=== PATIENT | female | born 1995 | race Caucasian/White ===

== ENCOUNTER 2024-10-20 07:06 | Outpatient (OUT) | payer BC, SELFPAY ==
--- OUTSIDE RECORDS SUMMARY | 2024-10-10 05:00 | XMS_ITS ---
Author Organization [facility] in [place] Address [address] [place] [address] Care Team Providers Care Mason Liner Name Role Phone Fransisco Pandey Primary Care Provider Allergies Allergen (clinical drug ingredient) Drug/Non Drug Allergy documented on EMR Reaction Allergy Type Onset Date Status Penicillin hives Drug Allergy Active REASON FOR VISIT Presents to office alone for yearly wellness exam, itchy read rash between breast x2 weeks. Has been using otc creams and is making it worse Medications Medication SIG (Take, Route, Fr equency, Duration) Notes Start Date End Date Status Ketoconazole 2 % 1 application Day Porter ally bid for 14 days 10/10/2024 Active Social History Tobacco Use: Social History Observation Description Date Details (start date - stop date) Never Smoker NA - NA Tobacco Control (Standard) Question Answer Notes Tobacco use: Nonsmoker AUDIT-C (Standard) Question Answer Notes Did you have a drink containing alcohol in the p ast year? No Points 0 Interpretation Negative Problems Problem Type SNOMED Code ICD Code Onset Dates Problem Status W/U Status Risk Notes Problem Well adult (192335289) Well adult (Z00.00) Active confirmed Vital Signs Weight 244.2 lbs 10/10/2024 Height 63 in 10/10/2024 Blood pressure systolic 134 mm Hg 10/11/19 25 Blood pressure diastolic 70 mm Hg 025 BMI 43.25 kg/m2 10/10/2024 Encounters Encounter Location Date Provider Diagnosis [facility] [address] [place] [address] 10/10/2024 Fransisco Pandey Well adult Z00.0 0 Assessments Encounter Date Diagnosis (ICD Code) Assessment Notes Treatment Notes Treatment Clinical Notes Section Notes 10/10/2024 Well adult (ICD-10 - Z00.00) Plan Of Treatment Medication Medication Name Sig Start Date Stop Date Notes Ketoconazole 2 % 1 application Externally bid for 14 days 10/10/2024 Pending Test Test Name Order Date HEMOGLOBIN A1C (GLYCO) 10/10/2024 IRON, TOTAL 10/10/2024 LIPID PANEL (CHOL/TRIG/HDL/LDL) 10/11/19 25 Insulin Level 10/10/2024 THYROID PANEL (T4/TSH/FREE T3) 5 CMP (COMP MET SULLIVAN) w/eGFR CKD-EPI 2024 CBC WITH DIFF 10/10/2024 Progress Notes * Wale GOMEZ LDOB: [birth year] (29 yo F)Acc No.[id number]:10/10/2024 Progress Note Patient: Wale BUSBY Provider: Crystal Pandey ([facility])MD :1995 A ge:29 Y S ex:Female Date:10/10/2024 Address:[address] [place] [address], [place] z[place] [id number] Check In:08:50 AM ESTCheck O ut:09:43 AM EST Subjective: * Chief Complaints: * P resents to office alone for yearly wellness examitchy read rash between breast x2 weeks. Has been using otc creams and is making it worse * HPI: D epression Screening: PHQ-2 (2015 Edition) L ittle interest or pleasure in doing things??Not at all F eeling down, depressed, or hopeless? N ot at all T otal Score 0 * ROS: E ENT: hearing changes d enies. v isual changes d enies.?non-healing mouth sores d enies. s wollen glands or neck lumps d enies. h oarseness d enies. s ore throat d enies. d ifficulty swallowing d enies. n ose bleeds d enies. n margaret congestion d enies. e ar ache d enies. e ar discharge?denies. r inging in ears d enies. l ight sensitivity d enies. e ye pain d enies. b lurring d enies. e ye irritation d enies. d ouble vision d enies.?vision loss d enies. G eneral/Constitutional: Sweats: D enies. F atigue d enies. S leep problems d enies. A norexia d enies. M alaise d enies. W eight loss d enies.?Fatigue or Weakness d enies. F ever or Chills d enies. C ardiovascular: Shortness of Breath w/lying flat d enies. L ightheadedness/dizziness d enies. C hest tightness/ heavy pressure d enies. S welling of legs, ankles, or feet d enies. W aking up with shortness of breath d enies. C hest pain denies. P alpitations d enies. W eight gain d enies. R espiratory: Chronic or frequent cough d enies. C oughing up blood?denies. D ifficulty breathing d enies. P roductive cough d enies. S noring?denies. S hortness of breath that awakens from sleep (PND) d enies. C hest pain d enies. S putum production d enies. W heezing d enies. M usculoskeletal: Joint pain d enies. J oint Fluid d enies. B ack pain d enies. K nee pain d enies. N hamilton pain d enies. J oint Stiffness d enies. M uscle cramps d enies. W eakness of muscles d enies. A rthritis d enies. M uscle aches d enies. P ain in shoulder(s) d enies. S wollen joints d enies. * Active Problem List N93.8 DUB (dysfunctional u terine bleeding) Modified On:11/29/2022U Status:confirmed E28.2 Polycystic ovary syn drome Modified On:11/29/2022U Status:confirmed Z00.00 Well adult Modified On:06/13/2025W/U Status:confirmed * Medical History: * Surgical History: S urgery left earlobe [place] Teeth * Hospitalization/Major Diagno stic Procedure: * Family History: F ather: alive. M other: alive. B rother(s): alive. S ister(s): alive. 3 brother(s) , 1 sister(s) . . unsure of any health issues in the family. * Social History: T obacco Use: T obacco Control (Standard) T obacco use: N onsmoker D rug/Alcohol: A ZULEYKA-C (Standard) D id you have a drink containing alcohol in the past year? N o P oints 0 I nterpretation N egative * Medications: D iscontinuedmetFORMIN HCl ER 500 MG Tablet Extended Release 24 Hour 1 tablet with evening meal Oral Once a day PARoxetine HCl 20 MG Tablet 1 tablet in the morning Orally Once a day Medication List reviewed and reconciled with the patientDiscontinued metFORMIN HCl ER 500 MG Tablet Extended Release 24 Hour 1 tablet with evening meal Oral Once a day Discontinued PARoxetine HCl 20 MG Tablet 1 tablet in the morning Orally Once a day Medication List reviewed and reconciled with the patient * Allergies: P enicillin: hivesno[Allergies Verified] Objective: * Vitals: W t:244.2lbs, Ht: 63 in, BP:134/70mm Hg, BMI:43.25Index, Ht-cm: 160.02 cm, Wt-k.77 kg. * Examination: P hysical Exam: GENERAL: w ell developed, well nourished, in no acute distress. HEAD: n ormocephalic/atraumatic. EYES: p upils equal, round and reactive to light, conjunctivae and sclerae normal. EARS: n o deformity or lesion of external ear, canals and TM appear normal bilaterally, TM's intact, not inflamed with normal light reflex, hearing grossly normal to conversational speech. NOSE: n o deformity, discharge, inflammation, or lesions.? MOUTH: m ucous membranes moist, normal oropharynx and posterior pharynx without lesions or exudates, tongue normal, dentition normal. NECK: n hamilton supple, no masses or palpable cervical nodes, trachea midline, thyroid without nodules, masses, tenderness, or enlargement. CHEST: n o chest wall deformity, no chest wall tenderness.? LUNGS: n ormal respiratory effort and clear to auscultation, no wheezes, rales, or rhonchi, good air exchange. CARDIO: r egular rate and rhythm, normal S1 and S2, nor murmur, rub, or gallop. PULSES: n ormal capillary refill. ABDOMEN: s oft, non-distended, non-tender, no masses. MUSCULOSKELETAL: n o deformity or scoliosis noted, normal range of motion, joints normal, no erythema, edema, effusion, or ecchymosis. EXTREMITY: n o clubbing, cyanosis, edema, or deformity with normal ROM in both upper and lower bilateral extremities. NEUROLOGIC: g rossly normal. SKIN: r cass in ant chest - . LYMPH NODES: n o cervical adenopathy, nodes normal. MENTAL STATUS: a lert and oriented x3, normal mood and affect. Assessment: * Assessment: 1. W ell adult - Z00.00 (Primary) Plan: * Treatment: * Procedure Codes: * Preventive Medicine: Screenings/Counseling: B SC ACTION PLAN Above Normal BMI Follow-up D ietary management education, guidance, and counseling See treatment section of progress note for complete details of management plan. * * Sign off status: Completed Visit Status: C HK (Check Out) true * Provider: Crystal Pandey ([facility])MD Date: 0 10/10/2024 Generated for Printi ng/Faxing/eTransmitting on: 0 10/20/2024 07:08 AM EDT History and Physical Notes * HPI (History of Present Illness) Category Sub-Category Detail Notes Category Not es Depression Screening PHQ-2 (2015 Edition) Little interest or pleasure in doing things?: Not at all Feeling down, depressed, or hopeless?: N ot at all Total Score: 0 Examination Category Sub-Category Detail Notes Category Not es Physical Exam GENERAL: well developed, well nourished, in no acute distress HEAD: normocephalic/atraum atic EYES: pupils equal, round and reactive to light, conjunctivae and sclerae normal EARS: no deformity or lesi on of external ear, canals and TM appear normal bilaterally, TM's intact, not inflamed with normal light reflex, hearing grossly normal to conversational speech NOSE: no deformity, discha rge, inflammation, or lesions MOUTH: mucous membranes matthias st, normal oropharynx and posterior pharynx without lesions or exudates, tongue normal, dentition normal NECK: neck supple, no mass es or palpable cervical nodes, trachea midline, thyroid without nodules, masses, tenderness, or enlargement CHEST: no chest wall deform ity, no chest wall tenderness LUNGS: normal respiratory e ffort and clear to auscultation, no wheezes, rales, or rhonchi, good air exchange CARDIO: regular rate and rhy thm, normal S1 and S2, nor murmur, rub, or gallop PULSES: normal capillary ref ill ABDOMEN: soft, non-distended, non-tender, no masses RECTAL: MUSCULOSKELETAL: no deformity or scol iosis noted, normal range of motion, joints normal, no erythema, edema, effusion, or ecchymosis EXTREMITY: no clubbing, cyanosi s, edema, or deformity with normal ROM in both upper and lower bilateral extremities NEUROLOGIC: grossly normal SKIN: rash in ant chest - LYMPH NODES: no cervical adenopat hy, nodes normal MENTAL STATUS: alert and oriented x 3, normal mood and affect
--- OUTSIDE RECORDS SUMMARY | 2024-10-20 07:08 | XMS_ITS | Clinical Summary ---
Author Organization [facility] Address [address] [place] [address] Care Team Providers Care Zanjero Name Role Phone Ayo Pandey MD Primary Care Provider [phone] Allergies Active Allergy Reactions Criticality Noted Date Comments Penicillins 09/07/2024 Medications No known medications Encounters Date Type Department Care Team Description 09/07/2024 4:41 PM EDT - 09/07/2024 5:43 PM EDT Emergency [facility] Emergency Department [address] [id number] Cris Leiva MD Abrasion of toe of left foot, initial encounter (Primary Dx) Discharge Disposition: Home or Self Care 09/07/2024 Travel from Last 3 Months Social History Tobacco Use Types Packs/Day Years Used Date Smoking Tobacco: Never Smokeless Tobacco: Never Tobacco Cessation:Counseling Given: Not Answered Alcohol Use Standard Drinks/Week Comments Never 0 (1 standard drink = 0.6 oz pur e alcohol) AUDIT-C Answer Date Recorded Q1: How often do you have a drink containing alcohol? Never 09/07/2024 Q2: How many drinks containi ng alcohol do you have on a typical day when you are drinking? Patient does not drink Q3: How often do you have si x or more drinks on one occasion? Never 09/07/2024 Comments No Sex and Gender Information Value Date Recorded Sex Assigned at Not on file Legal Sex Female 4:28 PM EDT Gender Identity Not on file Sexual Orientation Not on file Last Filed Vital Signs Vital Sign Reading Time Taken Comments Blood Pressure 130/75 09/07/2024 4:39 PM EDT Pulse 81 09/07/2024 4:39 PM EDT Temperature 36.7 C (98 F) 09/07/2024 4:39 PM EDT Respiratory Rate 16 09/07/2024 4:39 PM EDT Oxygen Saturation 100% 09/07/2024 4:39 PM EDT Inhaled Oxygen Concentration - - Weight - - Height - - Body Mass Index - - Plan of Treatment Health Maintenance Due Date Last Done Comments Depression Screen 2007 Varicella vaccine (1 of 2 - 13+ 2-dose series) 2008 HIV screen 2010 Hepatitis C screen 2013 Pap smear 2016 COVID-19 Vaccine ( season) 2023 10/21/2021 Flu vaccine (Season Ended) 2024 DTaP/Tdap/Td vaccine (7 - Td or Tdap) 08/18/2031 08/17/2021, 08/27/2000, 12/13/1998, Additional history exists Hepatitis B vaccine Completed 01/04/1996, 1995, 1995 Hib vaccine Completed 12/13/1998, 09/1995, 1995, Additional history exists Polio vaccine Completed 08/27/2000, 09/1995, 1995, Additional history exists HPV vaccine Aged Out No longer eligi ble based on patient's age to complete this topic Hepatitis A vaccine Aged Out No longe r eligible based on patient's age to complete this topic Meningococcal (ACWY) vaccine Aged Out No longer eligible based on patient's age to complete this topic Meningococcal B vaccine Aged Out No l onger eligible based on patient's age to complete this topic Pneumococcal 0-49 years Vaccine Aged Out No longer eligible based on patient's age to complete this topic Procedures Procedure Name Priority Date/Time Associated Diagnosis Comments XR FOOT LEFT (MIN 3 VIEWS) STAT 09/07/2024 4:51 PM EDT from Last 3 Months Results * XR FOOT LEFT (MIN 3 VIEWS) (09/07/2024 4:51 PM EDT) Anatomical Region Laterality Modality Foot, Ankle Computed Radiogr aphy 09/07/2024 5:26 PM EDT Impressions 09/07/2024 5:28 PM EDT 1. No acute fracture or dislocation. 2. Mild plantar calcaneal spurring. Narrative 09/07/2024 5:28 PM EDT EXAMINATION: THREE XRAY VIEWS OF THE LEFT FOOT 09/07/2024 3:51 pm COMPARISON: None. HISTORY: ORDERING SYSTEM PROVIDED HISTORY: pain/injury great toe. TECHNOLOGIST PROVIDED HISTORY: pain/injury great toe. FINDINGS: Mineralization appears normal. The joint spaces and soft tissues are unremarkable. No fracture, dislocation or focal bone lesion is identified. There is mild plantar calcaneal spurring. Procedure Note Chris Yoder MD - 09/07/2024 EXAMINATION: THREE XRAY VIEWS OF THE LEFT FOOT 09/07/2024 3:51 pm COMPARISON: None. HISTORY: ORDERING SYSTEM PROVIDED HISTORY: pain/injury great toe. TECHNOLOGIST PROVIDED HISTORY: pain/injury great toe. FINDINGS: Mineralization appears normal. The joint spaces and soft tissues are unremarkable. No fracture, dislocation or focal bone lesion isidentified. There is mild plantar calcaneal spurring. IMPRESSION: 1. No acute fracture or dislocation. 2. Mild plantar calcaneal spurring. Cris Leiva MD [facility] ORDERAB LES Final Result from Last 3 Months Insurance [employer]SSA[employer] Care Teams Zanjero Relationship Specialty Start Date End Date Ayo Pandey MD [address] [place] [address] PCP - General Family Medicine 09/07/24
--- OUTSIDE RECORDS SUMMARY | 2024-10-20 07:08 | XMS_ITS | Clinical Summary ---
Author Organization [employer] [facility] tem Address [facility] [place] [address] Care Team Providers Care Bleach Tester Name Role Phone Ayo Pandey MD Primary Care Provider [phone] Allergies Active Allergy Reactions Criticality Noted Date Comments Penicillins Anaphylaxis High 04/22/2021 Medications No known medications Active Problems No known active problems Social History Tobacco Use Types Packs/Day Years Used Date Smoking Tobacco: Never Assessed Comments Unknown Sex and Gender Information Value Date Recorded Sex Assigned at Not on file Legal Sex Female 9:07 PM EST Gender Identity Not on file Sexual Orientation Not on file Last Filed Vital Signs Vital Sign Reading Time Taken Comments Blood Pressure 157/95 04/22/2021 9:15 PM EST Pulse 68 04/22/2021 9:15 PM EST Temperature 36.6 C (97.9 F) 04/22/2021 9:15 PM EST Respiratory Rate 18 04/22/2021 9:15 PM EST Oxygen Saturation 98% 04/22/2021 9:15 PM EST Inhaled Oxygen Concentration - - Weight 97.5 kg (215 lb) 04/22/2021 9:14 PM EST Height 160 cm (5' 3 ) 04/22/2021 9:14 PM EST Body Mass Index 38.09 04/22/2021 9:14 PM EST Plan of Treatment Not on file Medical Devices Not on file Insurance [employer] Care Teams Bleach Tester Relationship Specialty Start Date End Date Ayo Pandey MD PCP - General Family Medicine 04/22/21
[2024-10-20 07:55] LABS: Basophils Percent Auto 0.4 % (0.2-2.0); Eosinophils Absolute Auto 0.2 10^3/uL (0.0-0.7); Eosinophils Percent Auto 3.2 % (0.9-7.0); Hematocrit 33.8 % (36.0-48.0); Hemoglobin 10.4 g/dL (12.0-16.0); Immature Granulocytes Abs Auto 0.02 10^3/uL (0.00-0.03); Immature Granulocytes Pct Auto 0.3 % (0.0-0.5); Lymphocytes Absolute Auto 1.9 10^3/uL (1.2-3.8); Lymphocytes Percent Auto 27.9 % (20.5-60.0); Mean Corpuscular HGB Conc 30.8 g/dL (29.9-35.2); Mean Corpuscular Hemoglobin 18.9 pg (26.7-34.0); Mean Corpuscular Volume 61.6 fL (81.0-99.0); Mean Platelet Volume 10.5 fL (9.5-13.5); Monocytes Absolute Auto 0.6 10^3/uL (0.3-0.8); Monocytes Percent Auto 8.1 % (1.7-12.0); Neutrophils Absolute Auto 4.2 10^3/uL (1.4-6.5); Neutrophils Percent Auto 60.1 % (43.0-75.0); Platelet Count 341 10^3/uL (150-450); Red Blood Count 5.49 10^6/uL (4.20-5.40); Red Cell Distribution Width 17.4 % (11.0-15.0)
[2024-10-20 08:04] LABS: Estimated Average Glucose 117 mg/dL; Glycohemoglobin A1C 5.7 % (4.5-6.2)
[2024-10-20 08:37] LABS: Alanine Aminotransferase 24 U/L (14-59); Albumin Globulin Ratio 0.9; Albumin Level 3.7 g/dL (3.4-5.0); Alkaline Phosphatase 61 U/L (46-116); Anion Gap 14.2; Aspartate Amino Transferase 13 U/L (15-37); BUN Creatinine Ratio 21.9; Bilirubin Total 0.3 mg/dL (0.2-1.0); Calcium 8.3 mg/dL (8.5-10.1); Carbon Dioxide 25.7 mmol/L (21.0-32.0); Chloride 107 mmol/L (98-107); Chol HDL Ratio 3.6; Cholesterol 194 mg/dL (<=200); Estimated GFR (African America >60 (>=60 mL/min/1.73m^2); Estimated GFR (Non-African Ame >60 (>=60 mL/min/1.73m^2); Free T3 3.11 pg/mL (2.18-3.98); Globulin 3.9 g/dL; Glucose 97 mg/dL (74-106); HDL Cholesterol 54 mg/dL (40-60); Potassium 3.9 mmol/L (3.5-5.1); Sodium 143 mmol/L (136-145); Thyroid Stimulating Hormone 2.367 uIU/mL (0.358-3.740); Total Protein 7.6 g/dL (6.4-8.2); Triglycerides 80 mg/dL (<=150)
[2024-10-21 05:07] LABS: Insulin 15.1 uIU/mL (2.6-24.9)
== END 2024-10-20 07:07 | disposition home or self-care (01) ==
PROVIDERS: PCP Family Medicine; Visit Provider Family Medicine
DX: Z00.00 Encounter for general adult medical examination without abnormal findings (principal)
CPT/HCPCS: 36415; 80053; 80061; 83036; 83525; 83540; 84436; 84443; 84481; 85025